=== PATIENT | male | born 1945 | race Two or more races ===

== ENCOUNTER 2020-08-31 09:02 | Day surgery (SDC) | payer OTHER ==
[~2020-08-31 09:02] MED LIST: KETO10TA2 PO; MEDROLPACK PO; ORPH100T PO
== END 2020-08-31 16:00 | disposition home or self-care (01) ==
LOC: AMB-ENDOS 09:02
PROVIDERS: ATTEND Surgery
DX: K57.32 Diverticulitis of large intestine without perforation or abscess without bleeding (principal); K64.8 Other hemorrhoids; Z20.822 Contact with and (suspected) exposure to COVID-19